=== PATIENT | male | born 1960 | race Caucasian/White ===

== ENCOUNTER 2021-01-14 21:57 | Emergency (ER) | payer OTHER ==
[~2021-01-14] VITALS: Ht 182.9 cm; Wt 104.1 kg
[2021-01-14] MEDS ORDERED: ALLO100T PO (22:22)
[2021-01-14] MEDS ORDERED: METF500T13 PO (22:22)
[2021-01-14] MEDS ORDERED: ASPI81CH33 PO (22:22)
[2021-01-14] MEDS ORDERED: CETI-24 PO (22:22)
[2021-01-14] MEDS ORDERED: LISI10TA15 PO (22:22)
[2021-01-14] MEDS ORDERED: SIMV10TA21 PO (22:22)
[2021-01-14] MEDS ORDERED: EZET10TA21 PO (22:22)
[2021-01-14 23:05] LABS: BASO # 0.1 10^3/uL (0.0-0.2); BASO % 0.6 % (0.0-1.0); EOS # 0.2 10^3/uL (0.0-0.5); EOS % 2.5 % (0.0-3.0); HEMATOCRIT 42.6 % (42.0-52.0); HEMOGLOBIN 14.8 g/dl (13.5-17.5); LYMPH # 2.5 10^3/uL (1.5-5.0); LYMPH % 28.8 % (24.0-44.0); MEAN CORPUSCULAR HEMOGLOBIN 31.8 pg (27.0-33.0); MEAN CORPUSCULAR HGB CONC 34.7 g/dl (32.0-36.5); MEAN CORPUSCULAR VOLUME 91.4 fl (80.0-96.0); MONO # 0.8 10^3/uL (0.0-0.8); MONO % 8.6 % (2.0-8.0); NEUTROPHILS # 5.2 10^3/uL (1.5-8.5); NEUTROPHILS % 59.2 % (36.0-66.0); PLATELET COUNT, AUTOMATED 324 10^3/uL (150-450); RED BLOOD COUNT 4.66 10^6/uL (4.30-6.10); WHITE BLOOD COUNT 8.8 10^3/uL (4.0-10.0)
[2021-01-14 23:36] LABS: ALBUMIN 3.9 GM/DL (3.2-5.2); ALT/SGPT 34 U/L (12-78); BILIRUBIN,DIRECT 0.1 MG/DL (0.0-0.2); BILIRUBIN,TOTAL 0.4 MG/DL (0.2-1.0); CK-MB VALUE MASS < 1.0 NG/ML (<3.6); CPK CREATINE PHOSPHOKINASE 109 U/L (39-308); LIPASE 125 U/L (73-393); MB/CK RELATIVE INDEX 0.92 (< OR =4); TOTAL PROTEIN 6.8 GM/DL (6.4-8.2); TROPONIN I < 0.02 NG/ML (< 0.10)
[2021-01-15] MEDS ORDERED: NAPR-837 PO (01:14)
[2021-01-15 01:30] VITALS: BP 153/92
--- NOTE | 2021-01-15 06:29 | ECGEPIP ---
[facility] - ED Test Date: 2021-01-14 Pat Name: ODALIS MANZANARES Department: Room: - Gender: Male Legal Director: charlee : 1960 Requested By: MAAME Escoto Order Number: [id number] Reading MD: Edel Leon Measurements Intervals [place] Rate: 76 P: 29 NV: 162 QRS: -36 QRSD: 106 T: 12 QT: 400 QTc: 450 Interpretive Statements Normal sinus rhythm Left axis deviation Nonspecific ST T wave changes No prior ECG for comparison Electronically Signed on 01-15-2021 6:28:55 EDT by Edel Leon
== END 2021-01-15 01:48 | disposition home or self-care (01) ==
LOC: M ED 21:57
DX: S39.011A Strain of muscle, fascia and tendon of abdomen, initial encounter (principal); X50.0XXA Overexertion from strenuous movement or load, initial encounter; Y92.89 Other specified places as the place of occurrence of the external cause; E11.9 Type 2 diabetes mellitus without complications; E78.5 Hyperlipidemia, unspecified; I10 Essential (primary) hypertension; Z79.899 Other long term (current) drug therapy; Z79.82 Long term (current) use of aspirin; Z79.84 Long term (current) use of oral hypoglycemic drugs